=== PATIENT | female | born 1960 | race Caucasian/White ===

== ENCOUNTER 2016-11-14 06:53 | Day surgery (SDC) | payer MEDICAID ==
[~2016-11-14] VITALS: Ht 167.6 cm; Wt 67.3 kg
[~2016-11-14 06:53] MED LIST: ACET-2744 PO; SODIUM CHLORIDE 0.9% 1,000 ML IV ONE
[2016-11-14] MEDS ORDERED: SODIUM CHLORIDE 0.9% 1,000 ML IV ONE (07:05)
[2016-11-14] MEDS ORDERED: BOTULINUM TOXIN TYPE A 100 UNITS/VIAL MISC ONE (07:30)
[2016-11-14] MEDS ORDERED: ONDANSETRON HCL 4 MG/2 ML VIAL IVP ONE (09:45)
[2016-11-14] MEDS ORDERED: PROPOFOL 1% 20 ML VIAL IVP ONE (12:00)
== END 2016-11-14 10:30 | disposition home or self-care (01) ==
LOC: SURGERY 06:53
PROVIDERS: ATTEND Specialist
DX: K21.9 Gastro-esophageal reflux disease without esophagitis (principal); K57.30 Diverticulosis of large intestine without perforation or abscess without bleeding; K64.8 Other hemorrhoids; K29.00 Acute gastritis without bleeding; I10 Essential (primary) hypertension; Z88.1 Allergy status to other antibiotic agents; Z87.442 Personal history of urinary calculi; Z87.891 Personal history of nicotine dependence
CPT/HCPCS: 43236; J0585; J2405; J2704; J7030